=== PATIENT | female | born 1940 | race Two or more races ===

== ENCOUNTER 2019-03-18 10:09 | Emergency (ER) | payer MEDICARE, MEDICAID ==
[~2019-03-18] VITALS: Ht 157.5 cm; Wt 65.8 kg
--- NOTE | 2019-03-18 10:30 | NUR ---
PT BIB BY DAUGHTER C/O R ARM PAIN AFTER A FALL. PT IS AAOX4, BREATHING EVEN AND UNLABORED, AMBULATORY. PT CONNECTED TO THE MONITOR
--- NOTE | 2019-03-18 10:45 | NUR ---
XRAY AT BEDSIDE
[2019-03-18] MEDS ORDERED: HYDROCODONE/APAP 10/325MG 1 EA TABLET ONE (10:47)
[2019-03-18] MEDS ORDERED: HYDROCODONE/APAP 10/325MG 1 EA TABLET PO ONE (11:00)
[2019-03-18 11:34] VITALS: BP 110/58
== END 2019-03-18 11:35 | disposition home or self-care (01) ==
LOC: ER 10:12
DX: S42.391A Other fracture of shaft of right humerus, initial encounter for closed fracture (principal); I10 Essential (primary) hypertension; E11.9 Type 2 diabetes mellitus without complications; Z85.118 Personal history of other malignant neoplasm of bronchus and lung; W18.39XA Other fall on same level, initial encounter; Y93.89 Activity, other specified; Y92.89 Other specified places as the place of occurrence of the external cause; Y99.8 Other external cause status
CPT/HCPCS: 73030-TC

== ENCOUNTER 2023-01-21 14:48 | Inpatient (IN) | payer MEDICAID, MEDICARE ==
[2023-01-21] VITALS (9 sets, daily range): BP systolic 135–172; BP diastolic 67–114; TEMP 98.1–98.5; O2SAT 93–98
[~2023-01-21] VITALS: Ht 165.1 cm; Wt 77.1 kg
[2023-01-21] MEDS ORDERED: ONDANSETRON HCL/PF 4 MG/2 ML VIAL ONE (15:26)
[2023-01-21 15:41] LABS: BASOPHILS # (AUTO) 0.1 K/uL (0.0-0.2); BASOPHILS % (AUTO) 0.7 % (0.0-2.0); EOSINOPHILS # (AUTO) 0.1 K/uL (0.0-0.7); EOSINOPHILS % (AUTO) 0.9 % (0.0-6.0); HEMATOCRIT 27 % (33-45); HEMOGLOBIN 8.6 g/dL (11.5-14.8); LYMPHOCYTES # (AUTO) 0.9 K/uL (0.8-4.8); LYMPHOCYTES % (AUTO) 8.4 % (20.0-44.0); MEAN CORPUSCULAR HEMOGLOBIN 26 PG (26.0-33.0); MEAN CORPUSCULAR HGB CONC 32 g/dl (31.0-36.0); MEAN CORPUSCULAR VOLUME 81 fL (82-100); MONOCYTES % (AUTO) 9.1 % (2.0-12.0); NEUTROPHILS # (AUTO) 9.1 K/uL (1.8-8.9); NEUTROPHILS % (AUTO) 80.9 % (43.0-81.0); PLATELET COUNT (AUTO) 590 K/uL (150-450); RED BLOOD CELL COUNT(AUTO) 3.34 MIL/uL (4.0-5.2); RED CELL DISTRIBUTION WIDTH 15.2 % (11.5-15.0); WHITE BLOOD COUNT (AUTO) 11.3 K/uL (4.3-11.0)
[2023-01-21 15:57] LABS: CALCIUM, SERUM 8.8 mg/dL (8.5-10.1); CARBON DIOXIDE 25 mmol/L (21-32); CHLORIDE 104 mmol/L (98-107); CREATININE 1.1 mg/dL (0.6-1.3); GLUCOSE 63 mg/dL (74-106); POTASSIUM 3.9 mmol/L (3.5-5.1); SODIUM SERUM 140 mmol/L (136-145); UREA NITROGEN, BLOOD 17 mg/dL (7-18)
[2023-01-21] MEDS ORDERED: ONDANSETRON HCL/PF - ER 4 MG/2 ML VIAL IV ONE (16:30)
[2023-01-21] MEDS ORDERED: GABA-532 PO (16:48)
[2023-01-21] MEDS ORDERED: INSU100V37 SQ (16:48)
[2023-01-21] MEDS ORDERED: LIDO30AD10 TP (16:48)
[2023-01-21] MEDS ORDERED: IPRA3AMP22 IH (16:48)
[2023-01-21] MEDS ORDERED: INSU100I4 SQ (16:48)
[2023-01-21] MEDS ORDERED: FERR325T23 PO (16:48)
[2023-01-21] MEDS ORDERED: HYDR-500 PO (16:48)
[2023-01-21] MEDS ORDERED: RIVA10TA PO (16:48)
[2023-01-21] MEDS ORDERED: BLOO-668 IN (16:48)
[2023-01-21] MEDS ORDERED: OMEP40CA21 PO (16:48)
[2023-01-21] MEDS ORDERED: IV NS 0.9% 250 ML IV ONE (16:48)
[2023-01-21] MEDS ORDERED: GUAI100S9 PO (16:48)
[2023-01-21] MEDS ORDERED: NIFE-57 PO (16:48)
[2023-01-21] MEDS ORDERED: CT SWABBABLE VALVE TRANS SET 1 EA INFUS.SET MC ONE (16:48)
[2023-01-21] MEDS ORDERED: DICL1PAT7 TD (16:48)
[2023-01-21] MEDS ORDERED: IOHEXOL-350 100 ML VIAL IV ONE (16:48)
[2023-01-21] MEDS ORDERED: SEMA1PEN SQ (16:48)
[2023-01-21] MEDS ORDERED: HEPARIN INFUSION/D5W 500 ML IV PRN (18:00)
[2023-01-21] MEDS ORDERED: ENOXAPARIN SODIUM 40 MG/0.4 ML DISP.SYRIN SQ SCH (18:00)
[2023-01-21] MEDS ORDERED: DEXTROSE 50%-WATER 50 ML DISP.SYRIN IV PRN (18:30)
[2023-01-21] MEDS ORDERED: MORPHINE SULFATE INJ 2 MG/ML DISP.SYRIN IV PRN (18:30)
[2023-01-21] MEDS ORDERED: ONDANSETRON HCL/PF 4 MG/2 ML VIAL IVP PRN (18:30)
[2023-01-21 18:59] LABS: INR 1.12 (0.91-1.10); PARTIAL THROMBOPLASTIN TIME 28.4 SEC (24.3-34.3); PROTHROMBIN TIME 11.7 SECS (9.2-11.1)
[2023-01-21] MEDS ORDERED: ENOXAPARIN SODIUM 40 MG/0.4 ML DISP.SYRIN SQ ONE (19:30)
[2023-01-21] MEDS: IPRATROPIUM NEB FS 0.5 MG/2.5 ML AMPUL.NEB NEB SCH (19:56)
[2023-01-21] MEDS: ALBUTEROL FS 2.5 MG/0.5 ML VIAL.NEB NEB SCH (19:58)
[2023-01-21] MEDS: NIFEdipine XL (30MG) 30 MG TAB PO PRN (20:38)
[2023-01-21] MEDS: BLOOD SUGAR DIAGNOSTIC 1 EACH STRIP VI SCH (22:28)
[2023-01-21] MEDS: INSULIN GLARGINE, 100 UNIT/ML CARTRIDGE SQ SCH (22:56)
[2023-01-22] VITALS (23 sets, daily range): BP systolic 119–155; BP diastolic 63–78; TEMP 98–98.6; O2SAT 91–100
[2023-01-22] MEDS: IPRATROPIUM NEB FS 0.5 MG/2.5 ML AMPUL.NEB NEB SCH ×4 (01:53→19:24)
[2023-01-22] MEDS: ALBUTEROL FS 2.5 MG/0.5 ML VIAL.NEB NEB SCH ×4 (01:53→19:25)
[2023-01-22 04:29] LABS: BASOPHILS # (AUTO) 0.1 K/uL (0.0-0.2); BASOPHILS % (AUTO) 0.7 % (0.0-2.0); EOSINOPHILS # (AUTO) 0.1 K/uL (0.0-0.7); EOSINOPHILS % (AUTO) 1.4 % (0.0-6.0); HEMATOCRIT 25 % (33-45); HEMOGLOBIN 7.9 g/dL (11.5-14.8); LYMPHOCYTES # (AUTO) 1.1 K/uL (0.8-4.8); LYMPHOCYTES % (AUTO) 10.3 % (20.0-44.0); MEAN CORPUSCULAR HEMOGLOBIN 25 PG (26.0-33.0); MEAN CORPUSCULAR HGB CONC 32 g/dl (31.0-36.0); MEAN CORPUSCULAR VOLUME 80 fL (82-100); MONOCYTES # (AUTO) 0.9 K/uL (0.1-1.30); MONOCYTES % (AUTO) 8.4 % (2.0-12.0); NEUTROPHILS # (AUTO) 8.4 K/uL (1.8-8.9); NEUTROPHILS % (AUTO) 79.2 % (43.0-81.0); PLATELET COUNT (AUTO) 524 K/uL (150-450); RED CELL DISTRIBUTION WIDTH 15.1 % (11.5-15.0); WHITE BLOOD COUNT (AUTO) 10.6 K/uL (4.3-11.0)
[2023-01-22 04:46] LABS: ALANINE AMINOTRANSFERASE 24 U/L (12-78); ALBUMIN 1.8 g/dL (3.4-5.0); ALKALINE PHOSPHATASE 102 U/L (46-116); ASPARTATE AMINOTRANSFERASE 24 U/L (15-37); BILIRUBIN,TOTAL 0.3 mg/dL (0.2-1.0); CALCIUM, SERUM 8.5 mg/dL (8.5-10.1); CARBON DIOXIDE 30 mmol/L (21-32); CHLORIDE 104 mmol/L (98-107); GLUCOSE 104 mg/dL (74-106); MAGNESIUM 1.5 mg/dL (1.8-2.4); PHOSPHORUS 3.5 mg/dL (2.5-4.9); POTASSIUM 3.9 mmol/L (3.5-5.1); SODIUM SERUM 140 mmol/L (136-145); UREA NITROGEN, BLOOD 13 mg/dL (7-18)
[2023-01-22 05:34] LABS: ABG BASE EXCESS 0.8 mmol/L; ABG PCO2 38.7 mmHg (35.0-45.0); ABG PH 7.429 (7.350-7.450); ABG PO2 113.9 mmHg (75.0-100.0); ABG TOTAL HEMOGLOBIN 10.1 G/dL (12.0-16.0); COHb 0.3 % (0.5-1.5); MetHb 0.4 % (0.0-1.5); O2Hb 97.3 % (94.0-97.0); SITE, ABG Right Radial
[2023-01-22] MEDS ORDERED: Z GUARD REMEDY 4 OZ OINT TP PRN (07:30)
[2023-01-22] MEDS ORDERED: Medication Not On Formulary EA (Omeprazole 40 MG) PO SCH (07:30)
[2023-01-22] MEDS: BLOOD SUGAR DIAGNOSTIC 1 EACH STRIP VI SCH ×4 (07:49→22:15)
[2023-01-22] MEDS ORDERED: MAGNESIUM OXIDE 400 MG TABLET PO ONE (09:00)
[2023-01-22] MEDS: FERROUS SULFATE (325 MG) 325 MG/TAB TABLET PO SCH (09:05)
[2023-01-22] MEDS: PANTOPRAZOLE 40 MG/PACK PACK PO SCH (09:05)
[2023-01-22] MEDS: GABAPENTIN 100 MG CAPSULE PO SCH ×2 (09:05→16:15)
[2023-01-22] MEDS: Z GUARD REMEDY 4 OZ OINT TP SCH (09:09)
[2023-01-22 10:17] LABS: IRON, SERUM 15 ug/dl (50-175); TOTAL IRON BINDING CAPACITY 211 ug/dl (250-450)
[2023-01-22 10:31] LABS: FERRITIN 385 ng/mL (8-388)
[2023-01-22] MEDS: PROSOURCE / PROSTAT (PYXIS) 30 ML UDC PO SCH ×2 (12:51→16:15)
[2023-01-22] MEDS: INSULIN REGULAR, HUMAN 100 UNIT/ML 3 ML VIAL SQ PRN ×2 (17:09→22:14)
[2023-01-22] MEDS ORDERED: IV NS 0.9% 250 ML IV PRN (18:00)
[2023-01-22] MEDS ORDERED: ENOXAPARIN SODIUM 80 MG/0.8 ML DISP.SYRIN SQ SCH (18:00)
[2023-01-22] MEDS: INSULIN GLARGINE, 100 UNIT/ML CARTRIDGE SQ SCH (22:13)
[2023-01-23] VITALS (14 sets, daily range): BP systolic 131–153; BP diastolic 58–76; TEMP 97.3–98.4; O2SAT 92–100
[2023-01-23] MEDS: IPRATROPIUM NEB FS 0.5 MG/2.5 ML AMPUL.NEB NEB SCH ×4 (01:18→20:05)
[2023-01-23] MEDS: ALBUTEROL FS 2.5 MG/0.5 ML VIAL.NEB NEB SCH ×4 (01:18→20:05)
[2023-01-23] MEDS: BLOOD SUGAR DIAGNOSTIC 1 EACH STRIP VI SCH ×4 (08:00→22:26)
[2023-01-23 08:31] LABS: BASOPHILS % (AUTO) 0.5 % (0.0-2.0); EOSINOPHILS # (AUTO) 0.2 K/uL (0.0-0.7); EOSINOPHILS % (AUTO) 2.2 % (0.0-6.0); HEMATOCRIT 28 % (33-45); HEMOGLOBIN 8.8 g/dL (11.5-14.8); LYMPHOCYTES # (AUTO) 0.9 K/uL (0.8-4.8); LYMPHOCYTES % (AUTO) 9.4 % (20.0-44.0); MEAN CORPUSCULAR HEMOGLOBIN 26 PG (26.0-33.0); MEAN CORPUSCULAR HGB CONC 32 g/dl (31.0-36.0); MEAN CORPUSCULAR VOLUME 81 fL (82-100); MONOCYTES # (AUTO) 0.8 K/uL (0.1-1.30); MONOCYTES % (AUTO) 8.7 % (2.0-12.0); NEUTROPHILS # (AUTO) 7.5 K/uL (1.8-8.9); NEUTROPHILS % (AUTO) 79.2 % (43.0-81.0); PLATELET COUNT (AUTO) 549 K/uL (150-450); RED BLOOD CELL COUNT(AUTO) 3.42 MIL/uL (4.0-5.2); RED CELL DISTRIBUTION WIDTH 15.4 % (11.5-15.0); WHITE BLOOD COUNT (AUTO) 9.4 K/uL (4.3-11.0)
[2023-01-23] MEDS: FERROUS SULFATE (325 MG) 325 MG/TAB TABLET PO SCH (08:44)
[2023-01-23] MEDS: PANTOPRAZOLE 40 MG/PACK PACK PO SCH (08:44)
[2023-01-23] MEDS: GABAPENTIN 100 MG CAPSULE PO SCH ×2 (08:44→17:16)
[2023-01-23] MEDS: Z GUARD REMEDY 4 OZ OINT TP SCH (08:45)
[2023-01-23] MEDS: PROSOURCE / PROSTAT (PYXIS) 30 ML UDC PO SCH ×3 (08:45→17:17)
[2023-01-23] MEDS ORDERED: MAGNESIUM OXIDE 400 MG TABLET PO ONE (10:00)
[2023-01-23] MEDS: INSULIN REGULAR, HUMAN 100 UNIT/ML 3 ML VIAL SQ PRN ×2 (13:23→17:13)
[2023-01-23] MEDS: ENOXAPARIN SODIUM 80 MG/0.8 ML DISP.SYRIN SQ SCH (17:17)
[2023-01-23] MEDS: *INSULIN REGULAR(HUMULIN R)HUM 100 UNIT/ML VIAL SQ PRN (22:22)
[2023-01-23] MEDS: INSULIN GLARGINE, 100 UNIT/ML CARTRIDGE SQ SCH (22:23)
[2023-01-23] MEDS ORDERED: MAGNESIUM HYDROXIDE 30 ML UDC PO PRN (23:30)
[2023-01-24] VITALS (15 sets, daily range): BP systolic 128–148; BP diastolic 63–74; TEMP 98.2–98.8; O2SAT 93–99
[2023-01-24] MEDS: ALBUTEROL FS 2.5 MG/0.5 ML VIAL.NEB NEB SCH ×4 (01:16→20:26)
[2023-01-24] MEDS: IPRATROPIUM NEB FS 0.5 MG/2.5 ML AMPUL.NEB NEB SCH ×4 (01:16→20:26)
[2023-01-24 07:20] LABS: BASOPHILS # (AUTO) 0.1 K/uL (0.0-0.2); BASOPHILS % (AUTO) 0.5 % (0.0-2.0); EOSINOPHILS # (AUTO) 0.2 K/uL (0.0-0.7); EOSINOPHILS % (AUTO) 1.4 % (0.0-6.0); HEMATOCRIT 27 % (33-45); HEMOGLOBIN 8.4 g/dL (11.5-14.8); LYMPHOCYTES # (AUTO) 1.1 K/uL (0.8-4.8); LYMPHOCYTES % (AUTO) 9.9 % (20.0-44.0); MEAN CORPUSCULAR HEMOGLOBIN 25 PG (26.0-33.0); MEAN CORPUSCULAR HGB CONC 31 g/dl (31.0-36.0); MEAN CORPUSCULAR VOLUME 82 fL (82-100); MONOCYTES # (AUTO) 1.1 K/uL (0.1-1.30); MONOCYTES % (AUTO) 9.7 % (2.0-12.0); NEUTROPHILS # (AUTO) 8.9 K/uL (1.8-8.9); NEUTROPHILS % (AUTO) 78.5 % (43.0-81.0); PLATELET COUNT (AUTO) 569 K/uL (150-450); RED BLOOD CELL COUNT(AUTO) 3.32 MIL/uL (4.0-5.2); RED CELL DISTRIBUTION WIDTH 15.3 % (11.5-15.0); WHITE BLOOD COUNT (AUTO) 11.4 K/uL (4.3-11.0)
[2023-01-24 07:42] LABS: ALANINE AMINOTRANSFERASE 19 U/L (12-78); ALBUMIN 1.9 g/dL (3.4-5.0); ALKALINE PHOSPHATASE 99 U/L (46-116); ASPARTATE AMINOTRANSFERASE 23 U/L (15-37); BILIRUBIN,TOTAL 0.2 mg/dL (0.2-1.0); CALCIUM, SERUM 8.6 mg/dL (8.5-10.1); CARBON DIOXIDE 28 mmol/L (21-32); CHLORIDE 101 mmol/L (98-107); GLUCOSE 116 mg/dL (74-106); POTASSIUM 4.4 mmol/L (3.5-5.1); SODIUM SERUM 138 mmol/L (136-145); TOTAL PROTEIN, SERUM 6.3 g/dL (6.4-8.2); UREA NITROGEN, BLOOD 13 mg/dL (7-18)
[2023-01-24] MEDS: BLOOD SUGAR DIAGNOSTIC 1 EACH STRIP VI SCH ×4 (09:10→21:15)
[2023-01-24] MEDS: PANTOPRAZOLE 40 MG/PACK PACK PO SCH (09:10)
[2023-01-24] MEDS: PROSOURCE / PROSTAT (PYXIS) 30 ML UDC PO SCH ×3 (09:11→18:31)
[2023-01-24] MEDS: FERROUS SULFATE (325 MG) 325 MG/TAB TABLET PO SCH (09:11)
[2023-01-24] MEDS: GABAPENTIN 100 MG CAPSULE PO SCH ×2 (09:11→18:32)
[2023-01-24] MEDS: Z GUARD REMEDY 4 OZ OINT TP SCH (09:12)
[2023-01-24] MEDS: ENOXAPARIN SODIUM 80 MG/0.8 ML DISP.SYRIN SQ SCH ×2 (09:17→18:32)
[2023-01-24] MEDS: INSULIN REGULAR, HUMAN 100 UNIT/ML 3 ML VIAL SQ PRN (12:16)
[2023-01-24] MEDS: INSULIN GLARGINE, 100 UNIT/ML CARTRIDGE SQ SCH (21:18)
[2023-01-25] VITALS (13 sets, daily range): BP systolic 138–163; BP diastolic 65–89; TEMP 97.5–98.2; O2SAT 88–100
[2023-01-25] MEDS: IPRATROPIUM NEB FS 0.5 MG/2.5 ML AMPUL.NEB NEB SCH ×4 (00:55→20:14)
[2023-01-25] MEDS: ALBUTEROL FS 2.5 MG/0.5 ML VIAL.NEB NEB SCH ×2 (00:55→07:35)
[2023-01-25 05:50] LABS: BASOPHILS % (AUTO) 0.4 % (0.0-2.0); EOSINOPHILS # (AUTO) 0.2 K/uL (0.0-0.7); HEMATOCRIT 25 % (33-45); HEMOGLOBIN 8.3 g/dL (11.5-14.8); LYMPHOCYTES # (AUTO) 0.9 K/uL (0.8-4.8); LYMPHOCYTES % (AUTO) 8.5 % (20.0-44.0); MEAN CORPUSCULAR HEMOGLOBIN 26 PG (26.0-33.0); MEAN CORPUSCULAR HGB CONC 33 g/dl (31.0-36.0); MEAN CORPUSCULAR VOLUME 79 fL (82-100); MONOCYTES % (AUTO) 9.4 % (2.0-12.0); NEUTROPHILS # (AUTO) 8.5 K/uL (1.8-8.9); NEUTROPHILS % (AUTO) 79.7 % (43.0-81.0); PLATELET COUNT (AUTO) 562 K/uL (150-450); RED BLOOD CELL COUNT(AUTO) 3.22 MIL/uL (4.0-5.2); RED CELL DISTRIBUTION WIDTH 15.5 % (11.5-15.0); WHITE BLOOD COUNT (AUTO) 10.6 K/uL (4.3-11.0)
[2023-01-25] MEDS: ACETAMINOPHEN 325 MG TABLET PO PRN ×2 (07:52→20:53)
[2023-01-25] MEDS: BLOOD SUGAR DIAGNOSTIC 1 EACH STRIP VI SCH ×4 (07:54→21:14)
[2023-01-25] MEDS: Z GUARD REMEDY 4 OZ OINT TP SCH (08:17)
[2023-01-25] MEDS: PROSOURCE / PROSTAT (PYXIS) 30 ML UDC PO SCH ×3 (08:17→16:22)
[2023-01-25] MEDS: PANTOPRAZOLE 40 MG/PACK PACK PO SCH (09:09)
[2023-01-25] MEDS: NIFEdipine XL (30MG) 30 MG TAB PO PRN (09:09)
[2023-01-25] MEDS: GABAPENTIN 100 MG CAPSULE PO SCH ×2 (09:09→16:23)
[2023-01-25] MEDS: FERROUS SULFATE (325 MG) 325 MG/TAB TABLET PO SCH (09:09)
[2023-01-25] MEDS: ENOXAPARIN SODIUM 80 MG/0.8 ML DISP.SYRIN SQ SCH (09:11)
[2023-01-25] MEDS ORDERED: APIXABAN 5 MG TABLET PO SCH (09:30)
[2023-01-25] MEDS: clonazePAM 1 MG TABLET PO SCH ×2 (11:00→11:59)
[2023-01-25] MEDS ORDERED: DOCUSATE SODIUM 100 MG CAPSULE PO SCH (12:30)
[2023-01-25] MEDS ORDERED: POLYETHYLENE GLYCOL 3350 17 GM POWD.PACK PO PRN ×2 (12:30→13:00)
[2023-01-25] MEDS ORDERED: DOCUSATE SODIUM 100 MG CAPSULE PO PRN (13:00)
[2023-01-25] MEDS ORDERED: POLYETHYLENE GLYCOL 3350 17 GM POWD.PACK PO SCH (13:00)
[2023-01-25] MEDS: APIXABAN 5 MG TABLET PO SCH (16:24)
[2023-01-25] MEDS: GLUCERNA SHAKE 237 ML CAN PO SCH (16:39)
[2023-01-25] MEDS: ASCORBIC ACID 500 MG TABLET PO SCH (16:40)
[2023-01-25] MEDS: INSULIN REGULAR, HUMAN 100 UNIT/ML 3 ML VIAL SQ PRN (17:58)
[2023-01-25] MEDS: *INSULIN REGULAR(HUMULIN R)HUM 100 UNIT/ML VIAL SQ PRN (21:17)
[2023-01-25] MEDS: INSULIN GLARGINE, 100 UNIT/ML CARTRIDGE SQ SCH (21:19)
[2023-01-26] VITALS (14 sets, daily range): BP systolic 107–160; BP diastolic 62–87; TEMP 97.3–97.9; O2SAT 93–100
[2023-01-26] MEDS: IPRATROPIUM NEB FS 0.5 MG/2.5 ML AMPUL.NEB NEB SCH ×4 (01:30→20:27)
[2023-01-26 07:33] LABS: BASOPHILS # (AUTO) 0.1 K/uL (0.0-0.2); BASOPHILS % (AUTO) 0.8 % (0.0-2.0); EOSINOPHILS # (AUTO) 0.3 K/uL (0.0-0.7); EOSINOPHILS % (AUTO) 2.7 % (0.0-6.0); HEMATOCRIT 28 % (33-45); HEMOGLOBIN 8.6 g/dL (11.5-14.8); LYMPHOCYTES # (AUTO) 0.8 K/uL (0.8-4.8); LYMPHOCYTES % (AUTO) 7.9 % (20.0-44.0); MEAN CORPUSCULAR HEMOGLOBIN 25 PG (26.0-33.0); MEAN CORPUSCULAR HGB CONC 30 g/dl (31.0-36.0); MEAN CORPUSCULAR VOLUME 82 fL (82-100); MONOCYTES # (AUTO) 0.6 K/uL (0.1-1.30); MONOCYTES % (AUTO) 5.7 % (2.0-12.0); NEUTROPHILS # (AUTO) 8.8 K/uL (1.8-8.9); NEUTROPHILS % (AUTO) 82.9 % (43.0-81.0); PLATELET COUNT (AUTO) 564 K/uL (150-450); RED BLOOD CELL COUNT(AUTO) 3.48 MIL/uL (4.0-5.2); RED CELL DISTRIBUTION WIDTH 15.5 % (11.5-15.0); WHITE BLOOD COUNT (AUTO) 10.7 K/uL (4.3-11.0)
[2023-01-26] MEDS: BLOOD SUGAR DIAGNOSTIC 1 EACH STRIP VI SCH ×4 (07:58→22:23)
[2023-01-26] MEDS: GABAPENTIN 100 MG CAPSULE PO SCH ×2 (08:36→16:24)
[2023-01-26] MEDS: MULTIVIT W/MINERALS 1 TAB TABLET PO SCH (08:36)
[2023-01-26] MEDS: ASCORBIC ACID 500 MG TABLET PO SCH ×2 (08:36→16:24)
[2023-01-26] MEDS: ZINC SULFATE 220 MG CAPSULE PO SCH (08:36)
[2023-01-26] MEDS: APIXABAN 5 MG TABLET PO SCH ×2 (08:39→16:25)
[2023-01-26] MEDS: FERROUS SULFATE (325 MG) 325 MG/TAB TABLET PO SCH (08:39)
[2023-01-26] MEDS: PANTOPRAZOLE 40 MG/PACK PACK PO SCH (08:39)
[2023-01-26] MEDS: GLUCERNA SHAKE 237 ML CAN PO SCH ×2 (08:40→16:25)
[2023-01-26] MEDS: Z GUARD REMEDY 4 OZ OINT TP SCH (08:41)
[2023-01-26] MEDS: INSULIN REGULAR, HUMAN 100 UNIT/ML 3 ML VIAL SQ PRN ×2 (08:42→22:26)
[2023-01-26] MEDS: PROSOURCE / PROSTAT (PYXIS) 30 ML UDC PO SCH ×3 (08:43→16:24)
[2023-01-26] MEDS: INSULIN GLARGINE, 100 UNIT/ML CARTRIDGE SQ SCH (22:27)
[2023-01-26] MEDS: ACETAMINOPHEN 325 MG TABLET PO PRN (23:06)
[2023-01-27] VITALS (12 sets, daily range): BP systolic 130–160; BP diastolic 66–83; TEMP 97.7–98.4; O2SAT 10–100
[2023-01-27] MEDS: IPRATROPIUM NEB FS 0.5 MG/2.5 ML AMPUL.NEB NEB SCH ×4 (01:30→20:26)
[2023-01-27] MEDS: BLOOD SUGAR DIAGNOSTIC 1 EACH STRIP VI SCH ×4 (05:46→21:58)
[2023-01-27 06:16] LABS: BASOPHILS # (AUTO) 0.1 K/uL (0.0-0.2); BASOPHILS % (AUTO) 0.6 % (0.0-2.0); EOSINOPHILS # (AUTO) 0.2 K/uL (0.0-0.7); EOSINOPHILS % (AUTO) 2.3 % (0.0-6.0); HEMATOCRIT 27 % (33-45); HEMOGLOBIN 8.7 g/dL (11.5-14.8); LYMPHOCYTES # (AUTO) 1.1 K/uL (0.8-4.8); LYMPHOCYTES % (AUTO) 10.1 % (20.0-44.0); MEAN CORPUSCULAR HEMOGLOBIN 26 PG (26.0-33.0); MEAN CORPUSCULAR HGB CONC 32 g/dl (31.0-36.0); MEAN CORPUSCULAR VOLUME 81 fL (82-100); MONOCYTES # (AUTO) 0.9 K/uL (0.1-1.30); MONOCYTES % (AUTO) 8.6 % (2.0-12.0); NEUTROPHILS # (AUTO) 8.2 K/uL (1.8-8.9); NEUTROPHILS % (AUTO) 78.4 % (43.0-81.0); PLATELET COUNT (AUTO) 600 K/uL (150-450); RED BLOOD CELL COUNT(AUTO) 3.32 MIL/uL (4.0-5.2); RED CELL DISTRIBUTION WIDTH 15.4 % (11.5-15.0); WHITE BLOOD COUNT (AUTO) 10.5 K/uL (4.3-11.0)
[2023-01-27] MEDS: GLUCERNA SHAKE 237 ML CAN PO SCH ×2 (08:00→16:01)
[2023-01-27] MEDS: PROSOURCE / PROSTAT (PYXIS) 30 ML UDC PO SCH ×3 (08:12→16:01)
[2023-01-27] MEDS: Z GUARD REMEDY 4 OZ OINT TP SCH (08:12)
[2023-01-27] MEDS: ASCORBIC ACID 500 MG TABLET PO SCH ×2 (08:41→16:04)
[2023-01-27] MEDS: FERROUS SULFATE (325 MG) 325 MG/TAB TABLET PO SCH (08:41)
[2023-01-27] MEDS: ZINC SULFATE 220 MG CAPSULE PO SCH (08:43)
[2023-01-27] MEDS: MULTIVIT W/MINERALS 1 TAB TABLET PO SCH (08:44)
[2023-01-27] MEDS: GABAPENTIN 100 MG CAPSULE PO SCH ×2 (08:44→16:04)
[2023-01-27] MEDS: APIXABAN 5 MG TABLET PO SCH ×2 (08:46→16:05)
[2023-01-27] MEDS: PANTOPRAZOLE 40 MG/PACK PACK PO SCH (08:49)
[2023-01-27] MEDS: ALBUTEROL FS 2.5 MG/0.5 ML VIAL.NEB NEB PRN (13:38)
[2023-01-27] MEDS: INSULIN REGULAR, HUMAN 100 UNIT/ML 3 ML VIAL SQ PRN ×2 (16:39→22:00)
[2023-01-27] MEDS: INSULIN GLARGINE, 100 UNIT/ML CARTRIDGE SQ SCH (21:59)
[2023-01-27] MEDS: *INSULIN REGULAR(HUMULIN R)HUM 100 UNIT/ML VIAL SQ PRN (22:07)
[2023-01-28] VITALS (14 sets, daily range): BP systolic 135–171; BP diastolic 64–80; TEMP 97.6–98; O2SAT 93–100
[2023-01-28] MEDS: NIFEdipine XL (30MG) 30 MG TAB PO PRN (00:44)
[2023-01-28] MEDS: IPRATROPIUM NEB FS 0.5 MG/2.5 ML AMPUL.NEB NEB SCH ×4 (02:29→19:42)
[2023-01-28] MEDS: PANTOPRAZOLE 40 MG/PACK PACK PO SCH ×5 (07:30→13:29)
[2023-01-28] MEDS: BLOOD SUGAR DIAGNOSTIC 1 EACH STRIP VI SCH ×4 (07:55→21:23)
[2023-01-28] MEDS: ASCORBIC ACID 500 MG TABLET PO SCH ×2 (08:35→17:02)
[2023-01-28] MEDS: GABAPENTIN 100 MG CAPSULE PO SCH ×2 (08:36→17:02)
[2023-01-28] MEDS: ZINC SULFATE 220 MG CAPSULE PO SCH (08:36)
[2023-01-28] MEDS: MULTIVIT W/MINERALS 1 TAB TABLET PO SCH (08:36)
[2023-01-28] MEDS: APIXABAN 5 MG TABLET PO SCH ×2 (08:37→17:03)
[2023-01-28] MEDS: FERROUS SULFATE (325 MG) 325 MG/TAB TABLET PO SCH (08:38)
[2023-01-28] MEDS: PROSOURCE / PROSTAT (PYXIS) 30 ML UDC PO SCH ×4 (08:40→17:33)
[2023-01-28] MEDS: GLUCERNA SHAKE 237 ML CAN PO SCH ×2 (08:46→17:33)
[2023-01-28] MEDS: Z GUARD REMEDY 4 OZ OINT TP SCH (09:00)
[2023-01-28] MEDS: INSULIN REGULAR, HUMAN 100 UNIT/ML 3 ML VIAL SQ PRN (12:55)
[2023-01-28] MEDS: *INSULIN REGULAR(HUMULIN R)HUM 100 UNIT/ML VIAL SQ PRN ×2 (16:59→21:21)
[2023-01-28] MEDS: INSULIN GLARGINE, 100 UNIT/ML CARTRIDGE SQ SCH (21:20)
[2023-01-29] VITALS (12 sets, daily range): BP systolic 129–158; BP diastolic 46–80; TEMP 97.6–98.6; O2SAT 94–99
[2023-01-29] MEDS: IPRATROPIUM NEB FS 0.5 MG/2.5 ML AMPUL.NEB NEB SCH ×4 (01:44→20:39)
[2023-01-29 05:44] LABS: BASOPHILS # (AUTO) 0.1 K/uL (0.0-0.2); BASOPHILS % (AUTO) 0.6 % (0.0-2.0); EOSINOPHILS # (AUTO) 0.3 K/uL (0.0-0.7); EOSINOPHILS % (AUTO) 2.5 % (0.0-6.0); HEMATOCRIT 26 % (33-45); HEMOGLOBIN 8.4 g/dL (11.5-14.8); LYMPHOCYTES # (AUTO) 1.2 K/uL (0.8-4.8); LYMPHOCYTES % (AUTO) 11.4 % (20.0-44.0); MEAN CORPUSCULAR HEMOGLOBIN 26 PG (26.0-33.0); MEAN CORPUSCULAR HGB CONC 32 g/dl (31.0-36.0); MEAN CORPUSCULAR VOLUME 80 fL (82-100); NEUTROPHILS # (AUTO) 7.7 K/uL (1.8-8.9); NEUTROPHILS % (AUTO) 75.5 % (43.0-81.0); PLATELET COUNT (AUTO) 574 K/uL (150-450); RED CELL DISTRIBUTION WIDTH 15.6 % (11.5-15.0); WHITE BLOOD COUNT (AUTO) 10.3 K/uL (4.3-11.0)
[2023-01-29 06:02] LABS: CALCIUM, SERUM 8.7 mg/dL (8.5-10.1); MAGNESIUM 1.9 mg/dL (1.8-2.4); PHOSPHORUS 3.3 mg/dL (2.5-4.9); POTASSIUM 4.3 mmol/L (3.5-5.1)
[2023-01-29] MEDS: BLOOD SUGAR DIAGNOSTIC 1 EACH STRIP VI SCH ×4 (07:45→22:26)
[2023-01-29] MEDS: *INSULIN REGULAR(HUMULIN R)HUM 100 UNIT/ML VIAL SQ PRN ×4 (07:48→22:34)
[2023-01-29] MEDS: ASCORBIC ACID 500 MG TABLET PO SCH ×2 (08:30→17:19)
[2023-01-29] MEDS: FERROUS SULFATE (325 MG) 325 MG/TAB TABLET PO SCH (08:30)
[2023-01-29] MEDS: MULTIVIT W/MINERALS 1 TAB TABLET PO SCH (08:30)
[2023-01-29] MEDS ORDERED: PANTOPRAZOLE 40 MG/PACK PACK PO SCH (08:30)
[2023-01-29] MEDS: PROSOURCE / PROSTAT (PYXIS) 30 ML UDC PO SCH ×3 (08:30→17:25)
[2023-01-29] MEDS: GABAPENTIN 100 MG CAPSULE PO SCH ×2 (08:31→17:19)
[2023-01-29] MEDS: APIXABAN 5 MG TABLET PO SCH ×2 (08:31→17:21)
[2023-01-29] MEDS: ZINC SULFATE 220 MG CAPSULE PO SCH (08:33)
[2023-01-29] MEDS: GLUCERNA SHAKE 237 ML CAN PO SCH ×2 (08:34→17:21)
[2023-01-29] MEDS: Z GUARD REMEDY 4 OZ OINT TP SCH (08:42)
[2023-01-29 15:16] LABS: ABG BASE EXCESS 6.1 mmol/L; ABG OXYGEN SATURATION 93.4 % (92.0-98.5); ABG PH 7.459 (7.350-7.450); ABG PO2 68.3 mmHg (75.0-100.0); ABG TOTAL HEMOGLOBIN 8.8 G/dL (12.0-16.0); AaDO2 108.4 mmHg; COHb 0.3 % (0.5-1.5); MetHb 0.3 % (0.0-1.5); O2Hb 92.8 % (94.0-97.0); SITE, ABG Right Radial; VENT MODE, BG nasal cannula
[2023-01-29] MEDS: INSULIN GLARGINE, 100 UNIT/ML CARTRIDGE SQ SCH (22:36)
[2023-01-30] VITALS (14 sets, daily range): BP systolic 130–157; BP diastolic 68–78; TEMP 97.7–98.6; O2SAT 92–100
[2023-01-30] MEDS: IPRATROPIUM NEB FS 0.5 MG/2.5 ML AMPUL.NEB NEB SCH ×4 (02:34→20:24)
[2023-01-30 07:04] LABS: BASOPHILS # (AUTO) 0.1 K/uL (0.0-0.2); BASOPHILS % (AUTO) 0.6 % (0.0-2.0); EOSINOPHILS # (AUTO) 0.2 K/uL (0.0-0.7); EOSINOPHILS % (AUTO) 1.7 % (0.0-6.0); HEMATOCRIT 26 % (33-45); HEMOGLOBIN 8.2 g/dL (11.5-14.8); LYMPHOCYTES # (AUTO) 1.2 K/uL (0.8-4.8); LYMPHOCYTES % (AUTO) 10.5 % (20.0-44.0); MEAN CORPUSCULAR HEMOGLOBIN 25 PG (26.0-33.0); MEAN CORPUSCULAR HGB CONC 31 g/dl (31.0-36.0); MEAN CORPUSCULAR VOLUME 80 fL (82-100); MONOCYTES % (AUTO) 8.3 % (2.0-12.0); NEUTROPHILS # (AUTO) 9.2 K/uL (1.8-8.9); NEUTROPHILS % (AUTO) 78.9 % (43.0-81.0); PLATELET COUNT (AUTO) 517 K/uL (150-450); RED CELL DISTRIBUTION WIDTH 15.7 % (11.5-15.0); WHITE BLOOD COUNT (AUTO) 11.7 K/uL (4.3-11.0)
[2023-01-30 07:14] LABS: CALCIUM, SERUM 8.6 mg/dL (8.5-10.1); CREATININE 0.9 mg/dL (0.6-1.3); MAGNESIUM 1.8 mg/dL (1.8-2.4); PHOSPHORUS 3.3 mg/dL (2.5-4.9); POTASSIUM 4.6 mmol/L (3.5-5.1)
[2023-01-30] MEDS: GLUCERNA SHAKE 237 ML CAN PO SCH ×2 (08:00→16:01)
[2023-01-30] MEDS: BLOOD SUGAR DIAGNOSTIC 1 EACH STRIP VI SCH ×4 (08:03→21:53)
[2023-01-30] MEDS: ASCORBIC ACID 500 MG TABLET PO SCH ×2 (08:11→16:07)
[2023-01-30] MEDS: FERROUS SULFATE (325 MG) 325 MG/TAB TABLET PO SCH (08:11)
[2023-01-30] MEDS: GABAPENTIN 100 MG CAPSULE PO SCH ×2 (08:11→16:07)
[2023-01-30] MEDS: PROSOURCE / PROSTAT (PYXIS) 30 ML UDC PO SCH ×3 (08:11→16:01)
[2023-01-30] MEDS: ZINC SULFATE 220 MG CAPSULE PO SCH (08:11)
[2023-01-30] MEDS: MULTIVIT W/MINERALS 1 TAB TABLET PO SCH (08:12)
[2023-01-30] MEDS: PANTOPRAZOLE 40 MG TABLET.DR PO SCH (08:12)
[2023-01-30] MEDS: Z GUARD REMEDY 4 OZ OINT TP SCH (08:14)
[2023-01-30] MEDS: APIXABAN 5 MG TABLET PO SCH ×2 (08:14→16:09)
[2023-01-30] MEDS: INSULIN REGULAR, HUMAN 100 UNIT/ML 3 ML VIAL SQ PRN ×2 (12:00→16:49)
[2023-01-30] MEDS: *INSULIN REGULAR(HUMULIN R)HUM 100 UNIT/ML VIAL SQ PRN (21:59)
[2023-01-30] MEDS: INSULIN GLARGINE, 100 UNIT/ML CARTRIDGE SQ SCH (21:59)
[2023-01-31] VITALS (13 sets, daily range): BP systolic 129–158; BP diastolic 61–82; TEMP 97.9–98.2; O2SAT 93–100
[2023-01-31] MEDS: ALBUTEROL FS 2.5 MG/0.5 ML VIAL.NEB NEB PRN (00:50)
[2023-01-31] MEDS: IPRATROPIUM NEB FS 0.5 MG/2.5 ML AMPUL.NEB NEB SCH ×4 (00:51→20:42)
[2023-01-31 07:42] LABS: BASOPHILS # (AUTO) 0.1 K/uL (0.0-0.2); BASOPHILS % (AUTO) 0.6 % (0.0-2.0); EOSINOPHILS # (AUTO) 0.1 K/uL (0.0-0.7); EOSINOPHILS % (AUTO) 0.9 % (0.0-6.0); HEMATOCRIT 25 % (33-45); HEMOGLOBIN 7.8 g/dL (11.5-14.8); LYMPHOCYTES # (AUTO) 0.8 K/uL (0.8-4.8); LYMPHOCYTES % (AUTO) 6.8 % (20.0-44.0); MEAN CORPUSCULAR HEMOGLOBIN 25 PG (26.0-33.0); MEAN CORPUSCULAR HGB CONC 32 g/dl (31.0-36.0); MEAN CORPUSCULAR VOLUME 80 fL (82-100); MONOCYTES # (AUTO) 0.8 K/uL (0.1-1.30); MONOCYTES % (AUTO) 7.7 % (2.0-12.0); NEUTROPHILS # (AUTO) 9.3 K/uL (1.8-8.9); PLATELET COUNT (AUTO) 490 K/uL (150-450); RED BLOOD CELL COUNT(AUTO) 3.11 MIL/uL (4.0-5.2); RED CELL DISTRIBUTION WIDTH 15.5 % (11.5-15.0)
[2023-01-31 07:57] LABS: CALCIUM, SERUM 8.4 mg/dL (8.5-10.1); CREATININE 0.9 mg/dL (0.6-1.3); MAGNESIUM 1.7 mg/dL (1.8-2.4); PHOSPHORUS 3.8 mg/dL (2.5-4.9); POTASSIUM 4.7 mmol/L (3.5-5.1)
[2023-01-31] MEDS: GLUCERNA SHAKE 237 ML CAN PO SCH ×2 (08:00→17:00)
[2023-01-31] MEDS: INSULIN REGULAR, HUMAN 100 UNIT/ML 3 ML VIAL SQ PRN ×3 (08:24→17:53)
[2023-01-31] MEDS: BLOOD SUGAR DIAGNOSTIC 1 EACH STRIP VI SCH ×4 (08:25→22:39)
[2023-01-31] MEDS: GABAPENTIN 100 MG CAPSULE PO SCH ×2 (08:59→10:32)
[2023-01-31] MEDS: ZINC SULFATE 220 MG CAPSULE PO SCH ×2 (09:00→10:31)
[2023-01-31] MEDS: MULTIVIT W/MINERALS 1 TAB TABLET PO SCH (09:00)
[2023-01-31] MEDS: APIXABAN 5 MG TABLET PO SCH ×2 (09:00→17:00)
[2023-01-31] MEDS: Z GUARD REMEDY 4 OZ OINT TP SCH (09:00)
[2023-01-31] MEDS: PANTOPRAZOLE 40 MG TABLET.DR PO SCH ×2 (09:03→10:31)
[2023-01-31] MEDS ORDERED: MAGNESIUM OXIDE 400 MG TABLET PO ONE (10:00)
[2023-01-31] MEDS: PROSOURCE / PROSTAT (PYXIS) 30 ML UDC PO SCH ×3 (10:30→17:14)
[2023-01-31] MEDS: FERROUS SULFATE (325 MG) 325 MG/TAB TABLET PO SCH (10:33)
[2023-01-31] MEDS: ASCORBIC ACID 500 MG TABLET PO SCH ×2 (10:34→17:15)
[2023-01-31] MEDS: NIFEdipine XL (30MG) 30 MG TAB PO PRN (15:18)
[2023-01-31] MEDS: INSULIN GLARGINE, 100 UNIT/ML CARTRIDGE SQ SCH (22:28)
[2023-01-31] MEDS: *INSULIN REGULAR(HUMULIN R)HUM 100 UNIT/ML VIAL SQ PRN (22:32)
[2023-01-31] MEDS: ACETAMINOPHEN 325 MG TABLET PO PRN (22:39)
[2023-02-01] VITALS (11 sets, daily range): BP systolic 130–155; BP diastolic 61–75; TEMP 97.5–97.9; O2SAT 90–98
[2023-02-01] MEDS: IPRATROPIUM NEB FS 0.5 MG/2.5 ML AMPUL.NEB NEB SCH ×4 (01:28→20:28)
[2023-02-01 06:03] LABS: BASOPHILS # (AUTO) 0.1 K/uL (0.0-0.2); BASOPHILS % (AUTO) 0.6 % (0.0-2.0); EOSINOPHILS # (AUTO) 0.2 K/uL (0.0-0.7); EOSINOPHILS % (AUTO) 1.8 % (0.0-6.0); HEMATOCRIT 26 % (33-45); HEMOGLOBIN 8.1 g/dL (11.5-14.8); LYMPHOCYTES % (AUTO) 8.7 % (20.0-44.0); MEAN CORPUSCULAR HEMOGLOBIN 25 PG (26.0-33.0); MEAN CORPUSCULAR HGB CONC 31 g/dl (31.0-36.0); MEAN CORPUSCULAR VOLUME 80 fL (82-100); MONOCYTES % (AUTO) 9.5 % (2.0-12.0); NEUTROPHILS # (AUTO) 8.7 K/uL (1.8-8.9); NEUTROPHILS % (AUTO) 79.4 % (43.0-81.0); PLATELET COUNT (AUTO) 464 K/uL (150-450); RED BLOOD CELL COUNT(AUTO) 3.23 MIL/uL (4.0-5.2); RED CELL DISTRIBUTION WIDTH 15.7 % (11.5-15.0)
[2023-02-01 06:14] LABS: CALCIUM, SERUM 8.7 mg/dL (8.5-10.1); CARBON DIOXIDE 32 mmol/L (21-32); CHLORIDE 100 mmol/L (98-107); CREATININE 0.9 mg/dL (0.6-1.3); GLUCOSE 161 mg/dL (74-106); MAGNESIUM 1.8 mg/dL (1.8-2.4); PHOSPHORUS 3.5 mg/dL (2.5-4.9); POTASSIUM 4.5 mmol/L (3.5-5.1); SODIUM SERUM 135 mmol/L (136-145); UREA NITROGEN, BLOOD 19 mg/dL (7-18)
[2023-02-01] MEDS: BLOOD SUGAR DIAGNOSTIC 1 EACH STRIP VI SCH ×4 (07:50→22:32)
[2023-02-01] MEDS: GLUCERNA SHAKE 237 ML CAN PO SCH ×2 (07:51→17:00)
[2023-02-01] MEDS: GABAPENTIN 100 MG CAPSULE PO SCH ×2 (07:58→17:13)
[2023-02-01] MEDS: MULTIVIT W/MINERALS 1 TAB TABLET PO SCH (08:01)
[2023-02-01] MEDS: FERROUS SULFATE (325 MG) 325 MG/TAB TABLET PO SCH (08:02)
[2023-02-01] MEDS: ASCORBIC ACID 500 MG TABLET PO SCH ×2 (08:03→17:13)
[2023-02-01] MEDS: PROSOURCE / PROSTAT (PYXIS) 30 ML UDC PO SCH ×3 (08:03→17:16)
[2023-02-01] MEDS: Z GUARD REMEDY 4 OZ OINT TP SCH (09:00)
[2023-02-01] MEDS: ALBUTEROL FS 2.5 MG/3 ML VIAL.NEB NEB SCH ×2 (13:37→20:28)
[2023-02-01] MEDS: INSULIN REGULAR, HUMAN 100 UNIT/ML 3 ML VIAL SQ PRN (17:02)
[2023-02-01] MEDS: APIXABAN 5 MG TABLET PO SCH (18:54)
[2023-02-01] MEDS: *INSULIN REGULAR(HUMULIN R)HUM 100 UNIT/ML VIAL SQ PRN (22:27)
[2023-02-01] MEDS: INSULIN GLARGINE, 100 UNIT/ML CARTRIDGE SQ SCH (22:28)
[2023-02-02] VITALS (11 sets, daily range): BP systolic 130–138; BP diastolic 65–71; TEMP 97.7–98; O2SAT 8–97
[2023-02-02] MEDS: ALBUTEROL FS 2.5 MG/3 ML VIAL.NEB NEB SCH ×4 (01:58→20:34)
[2023-02-02] MEDS: IPRATROPIUM NEB FS 0.5 MG/2.5 ML AMPUL.NEB NEB SCH ×4 (01:58→20:34)
[2023-02-02 06:16] LABS: BASOPHILS # (AUTO) 0.1 K/uL (0.0-0.2); BASOPHILS % (AUTO) 0.7 % (0.0-2.0); EOSINOPHILS # (AUTO) 0.2 K/uL (0.0-0.7); HEMATOCRIT 26 % (33-45); HEMOGLOBIN 8.3 g/dL (11.5-14.8); LYMPHOCYTES # (AUTO) 1.1 K/uL (0.8-4.8); LYMPHOCYTES % (AUTO) 10.7 % (20.0-44.0); MEAN CORPUSCULAR HEMOGLOBIN 26 PG (26.0-33.0); MEAN CORPUSCULAR HGB CONC 32 g/dl (31.0-36.0); MEAN CORPUSCULAR VOLUME 80 fL (82-100); MONOCYTES % (AUTO) 9.6 % (2.0-12.0); NEUTROPHILS # (AUTO) 7.7 K/uL (1.8-8.9); PLATELET COUNT (AUTO) 468 K/uL (150-450); RED BLOOD CELL COUNT(AUTO) 3.24 MIL/uL (4.0-5.2); RED CELL DISTRIBUTION WIDTH 15.7 % (11.5-15.0)
[2023-02-02 06:36] LABS: CALCIUM, SERUM 8.7 mg/dL (8.5-10.1); MAGNESIUM 2.1 mg/dL (1.8-2.4); PHOSPHORUS 3.5 mg/dL (2.5-4.9); POTASSIUM 4.6 mmol/L (3.5-5.1)
[2023-02-02] MEDS: BLOOD SUGAR DIAGNOSTIC 1 EACH STRIP VI SCH ×4 (08:13→21:33)
[2023-02-02] MEDS: INSULIN REGULAR, HUMAN 100 UNIT/ML 3 ML VIAL SQ PRN ×3 (08:15→16:45)
[2023-02-02] MEDS: PROSOURCE / PROSTAT (PYXIS) 30 ML UDC PO SCH ×3 (08:39→16:45)
[2023-02-02] MEDS: Z GUARD REMEDY 4 OZ OINT TP SCH (08:39)
[2023-02-02] MEDS: GLUCERNA SHAKE 237 ML CAN PO SCH ×2 (08:39→16:45)
[2023-02-02] MEDS: FERROUS SULFATE (325 MG) 325 MG/TAB TABLET PO SCH (08:41)
[2023-02-02] MEDS: MULTIVIT W/MINERALS 1 TAB TABLET PO SCH (08:41)
[2023-02-02] MEDS: GABAPENTIN 100 MG CAPSULE PO SCH ×2 (08:41→16:46)
[2023-02-02] MEDS: ASCORBIC ACID 500 MG TABLET PO SCH ×2 (08:41→16:46)
[2023-02-02] MEDS: ZINC SULFATE 220 MG CAPSULE PO SCH (08:41)
[2023-02-02] MEDS: APIXABAN 5 MG TABLET PO SCH ×2 (08:42→16:47)
[2023-02-02] MEDS: PANTOPRAZOLE 40 MG TABLET.DR PO SCH (08:43)
[2023-02-02] MEDS: *INSULIN REGULAR(HUMULIN R)HUM 100 UNIT/ML VIAL SQ PRN (21:36)
[2023-02-02] MEDS: INSULIN GLARGINE, 100 UNIT/ML CARTRIDGE SQ SCH (21:37)
[2023-02-03] VITALS (14 sets, daily range): BP systolic 143–173; BP diastolic 68–83; TEMP 97.5–98.6; O2SAT 91–99
[2023-02-03] MEDS: ALBUTEROL FS 2.5 MG/3 ML VIAL.NEB NEB SCH ×4 (02:11→20:07)
[2023-02-03] MEDS: IPRATROPIUM NEB FS 0.5 MG/2.5 ML AMPUL.NEB NEB SCH ×4 (02:11→20:07)
[2023-02-03] MEDS: ALBUTEROL FS 2.5 MG/0.5 ML VIAL.NEB NEB PRN (06:04)
[2023-02-03 06:51] LABS: BASOPHILS # (AUTO) 0.1 K/uL (0.0-0.2); BASOPHILS % (AUTO) 0.5 % (0.0-2.0); EOSINOPHILS # (AUTO) 0.2 K/uL (0.0-0.7); EOSINOPHILS % (AUTO) 1.6 % (0.0-6.0); HEMATOCRIT 29 % (33-45); HEMOGLOBIN 9.1 g/dL (11.5-14.8); LYMPHOCYTES # (AUTO) 1.3 K/uL (0.8-4.8); LYMPHOCYTES % (AUTO) 10.8 % (20.0-44.0); MEAN CORPUSCULAR HEMOGLOBIN 26 PG (26.0-33.0); MEAN CORPUSCULAR HGB CONC 31 g/dl (31.0-36.0); MEAN CORPUSCULAR VOLUME 81 fL (82-100); MONOCYTES # (AUTO) 1.1 K/uL (0.1-1.30); MONOCYTES % (AUTO) 8.9 % (2.0-12.0); NEUTROPHILS # (AUTO) 9.5 K/uL (1.8-8.9); NEUTROPHILS % (AUTO) 78.2 % (43.0-81.0); PLATELET COUNT (AUTO) 494 K/uL (150-450); RED BLOOD CELL COUNT(AUTO) 3.56 MIL/uL (4.0-5.2); RED CELL DISTRIBUTION WIDTH 15.9 % (11.5-15.0); WHITE BLOOD COUNT (AUTO) 12.2 K/uL (4.3-11.0)
[2023-02-03 07:19] LABS: CALCIUM, SERUM 8.9 mg/dL (8.5-10.1); CREATININE 0.9 mg/dL (0.6-1.3); POTASSIUM 4.5 mmol/L (3.5-5.1)
[2023-02-03] MEDS: BLOOD SUGAR DIAGNOSTIC 1 EACH STRIP VI SCH ×4 (07:27→22:50)
[2023-02-03] MEDS: INSULIN REGULAR, HUMAN 100 UNIT/ML 3 ML VIAL SQ PRN ×3 (07:31→16:33)
[2023-02-03] MEDS: GLUCERNA SHAKE 237 ML CAN PO SCH ×2 (08:15→16:29)
[2023-02-03] MEDS: PANTOPRAZOLE 40 MG TABLET.DR PO SCH (08:18)
[2023-02-03] MEDS: ZINC SULFATE 220 MG CAPSULE PO SCH (08:18)
[2023-02-03] MEDS: GABAPENTIN 100 MG CAPSULE PO SCH ×2 (08:18→16:28)
[2023-02-03] MEDS: MULTIVIT W/MINERALS 1 TAB TABLET PO SCH (08:18)
[2023-02-03] MEDS: ASCORBIC ACID 500 MG TABLET PO SCH ×2 (08:18→16:28)
[2023-02-03] MEDS: FERROUS SULFATE (325 MG) 325 MG/TAB TABLET PO SCH (08:18)
[2023-02-03] MEDS: APIXABAN 5 MG TABLET PO SCH ×2 (08:19→16:29)
[2023-02-03] MEDS: PROSOURCE / PROSTAT (PYXIS) 30 ML UDC PO SCH ×3 (08:20→16:28)
[2023-02-03] MEDS: Z GUARD REMEDY 4 OZ OINT TP SCH (08:20)
[2023-02-03] MEDS: ACETAMINOPHEN 325 MG TABLET PO PRN (19:44)
[2023-02-03] MEDS: INSULIN GLARGINE, 100 UNIT/ML CARTRIDGE SQ SCH (22:37)
[2023-02-03] MEDS: *INSULIN REGULAR(HUMULIN R)HUM 100 UNIT/ML VIAL SQ PRN (22:43)
[2023-02-04] VITALS (13 sets, daily range): BP systolic 135–172; BP diastolic 63–91; TEMP 97.8–98; O2SAT 93–99
[2023-02-04] MEDS: ALBUTEROL FS 2.5 MG/3 ML VIAL.NEB NEB SCH ×4 (01:55→19:30)
[2023-02-04] MEDS: IPRATROPIUM NEB FS 0.5 MG/2.5 ML AMPUL.NEB NEB SCH ×4 (01:55→19:30)
[2023-02-04] MEDS: GLUCERNA SHAKE 237 ML CAN PO SCH ×2 (08:00→16:13)
[2023-02-04] MEDS: ZINC SULFATE 220 MG CAPSULE PO SCH (08:27)
[2023-02-04] MEDS: GABAPENTIN 100 MG CAPSULE PO SCH ×2 (08:28→16:12)
[2023-02-04] MEDS: APIXABAN 5 MG TABLET PO SCH ×2 (08:28→16:12)
[2023-02-04] MEDS: MULTIVIT W/MINERALS 1 TAB TABLET PO SCH (08:28)
[2023-02-04] MEDS: PROSOURCE / PROSTAT (PYXIS) 30 ML UDC PO SCH ×3 (08:29→16:13)
[2023-02-04] MEDS: ASCORBIC ACID 500 MG TABLET PO SCH ×2 (08:29→16:12)
[2023-02-04] MEDS: PANTOPRAZOLE 40 MG TABLET.DR PO SCH (08:29)
[2023-02-04] MEDS: FERROUS SULFATE (325 MG) 325 MG/TAB TABLET PO SCH (08:29)
[2023-02-04] MEDS: BLOOD SUGAR DIAGNOSTIC 1 EACH STRIP VI SCH ×4 (08:38→22:15)
[2023-02-04] MEDS: Z GUARD REMEDY 4 OZ OINT TP SCH (08:40)
[2023-02-04] MEDS: INSULIN REGULAR, HUMAN 100 UNIT/ML 3 ML VIAL SQ PRN ×3 (08:41→16:52)
[2023-02-04] MEDS ORDERED: ALBUT2 NEB (13:11)
[2023-02-04] MEDS ORDERED: ASCO500T21 PO (13:11)
[2023-02-04] MEDS ORDERED: APIX5TAB PO ×2 (13:11)
[2023-02-04] MEDS ORDERED: ALBU2.5V13 NEB (13:11)
[2023-02-04] MEDS ORDERED: IPRA0.2S9 NEB (13:11)
[2023-02-04] MEDS ORDERED: PANT40TA49 PO (13:11)
[2023-02-04] MEDS: NIFEdipine XL (30MG) 30 MG TAB PO PRN (20:46)
[2023-02-04] MEDS ORDERED: CLONIDINE HCL 0.1 MG TABLET PO PRN (21:30)
[2023-02-04] MEDS: INSULIN GLARGINE, 100 UNIT/ML CARTRIDGE SQ SCH (22:17)
== END 2023-02-05 00:20 | disposition home health service (06) | DRG 175 ==
LOC: ER 14:58 → ICU 16:09 → TELE-TD 01-22 15:33 → TELE1 01-26 11:24 → MEDSG1 01-30 17:45 → TELE1 02-03 06:05 → MEDSG1 02-04 14:25
PROVIDERS: ADMIT Internal Medicine; ATTEND Nurse Practitioner Acute Care
PROC: 05H533Z Insertion of Infusion Device into Right Subclavian Vein, Percutaneous Approach (ICD-10-PCS; principal; 2023-01-21)
PROC: B546ZZA Ultrasonography of Right Subclavian Vein, Guidance (ICD-10-PCS; 2023-01-21)
PROC: 5A09357 Assistance with Respiratory Ventilation, Less than 24 Consecutive Hours, Continuous Positive Airway Pressure (ICD-10-PCS; 2023-01-21)
DX: I26.99 Other pulmonary embolism without acute cor pulmonale (principal); J96.21 Acute and chronic respiratory failure with hypoxia; J91.0 Malignant pleural effusion; C34.90 Malignant neoplasm of unspecified part of unspecified bronchus or lung; D75.839 Thrombocytosis, unspecified; E11.9 Type 2 diabetes mellitus without complications; E66.9 Obesity, unspecified; F41.9 Anxiety disorder, unspecified; I10 Essential (primary) hypertension; Z79.01 Long term (current) use of anticoagulants; Z79.4 Long term (current) use of insulin; Z86.711 Personal history of pulmonary embolism; Z20.822 Contact with and (suspected) exposure to COVID-19; Z68.28 Body mass index [BMI] 28.0-28.9, adult; D50.9 Iron deficiency anemia, unspecified
CPT/HCPCS: 36410; 36415; 36600; 70450-TC; 71045-TC; 80048-TC; 80053-TC; 82728-TC; 82962-TC; 83540-TC; 83605-TC; 83735-TC; 84100-TC; 84484-TC; 85025-TC; 85378-TC; 85610-TC; 85730-TC; 93307-TC; 93970-TC; 94762-TC; 94799-TC; 97110-TC; 97116-TC; 97530-TC; 97535-TC; G0378; J1650; J1815; J2270; J2405; J7050; Q9967